=== PATIENT | female | born 1970 | race Caucasian/White ===

== ENCOUNTER 2017-07-15 18:13 | Emergency (ER) | payer SELFPAY ==
[~2017-07-15] VITALS: Ht 157.5 cm; Wt 127.3 kg
[~2017-07-15 18:13] MED LIST: 00186-0372-20 IH; AMOXICILLIN 8751 TAB PO; AUGMENTIN XR 101 TER PO; BYSTOLIC5 MG PO; LEVAQUIN 5500 MG/TA1 PO; LEXAPRO 10MG10 MG PO; MACROBID 1100 MG/CAP PO; NORCO 325 MG-51 TAB PO; PREDNISONE10 MG PO; PREDNISONE20 MG PO; PRIL40 PO; PRINIVIL20 MG PO; RT ALBUTER2.5 MG/0.5 IH; TOPAMAX 25MG25 M1 PO; TOPAMAX50 MG PO; TUSS PO; XOPENEX HF0.045 MG/A IH; XOPENEX0.63 MG/3 IH; ZITHROMAX Z PA250 MG PO; ZYRTEC ALLERGY10 MG PO
[2017-07-15 18:15] VITALS: TEMP 98.7
[2017-07-15] MEDS ORDERED: CYMBALTA 60MG60 MG PO (18:43)
[2017-07-15 19:01] LABS: BASO # 0.1 (0.0-0.2); BASO % 0.6 % (0.0-2.0); EOS # 0.4 (0.0-0.7); EOS % 2.8 % (0-4.0); GRAN # 10.2 (1.4-6.5); GRAN % 73.8 % (42.2-75.2); HEMATOCRIT 39.8 % (37.0-47.0); HEMOGLOBIN 12.8 g/dl (12.5-16.0); LYMPH # 2.6 (1.2-3.4); LYMPH % 18.6 % (20.0-51.0); MEAN CELL VOLUME 86 fl (80.0-100.0); MEAN CORPUSCULAR HEMOGLOBIN 28 pg (27.0-31.0); MEAN CORPUSCULAR HGB CONC 32 g/dl (33.0-37.0); MONO # 0.5 (0.1-0.6); MONO % 3.8 % (1.7-9.3); PLATELET COUNT 324 K/mm3 (130-400); RED BLOOD COUNT 4.64 M/mm3 (4.10-5.30); REDCELL DISTRIBUTION WIDTH-CV 14.6 % (11.5-14.5)
[2017-07-15 19:10] LABS: ALBUMIN 3.9 gm/dL (3.5-5.0); BILIRUBIN,TOTAL 0.4 mg/dL (0.0-1.0); CALCIUM 9.1 mg/dL (8.4-10.2); CREATININE, serum 0.74 mg/dL (0.52-1.25); TOTAL PROTEIN 7.5 gm/dL (6.4-8.2)
[2017-07-15 19:48] VITALS: PULSE 86
[2017-07-15 20:40] VITALS: BP 142/94
== END 2017-07-15 21:09 | disposition home or self-care (01) ==
LOC: COL.ER 18:13
PROVIDERS: Family Medicine
DX: I10 Essential (primary) hypertension (principal); R55 Syncope and collapse

== ENCOUNTER → 2017-07-30 | Outpatient (CLI) | payer SELFPAY ==
[~2017-07-30] MED LIST changes: +CYMBALTA 60MG60 MG PO
== END ==
LOC: COL.RAD 08:18
DX: R07.9 Chest pain, unspecified (principal); R00.0 Tachycardia, unspecified
CPT/HCPCS: A9539; A9540

== ENCOUNTER 2018-06-03 21:12 | Inpatient (IN) | payer SELFPAY ==
[~2018-06-03] VITALS: Ht 157.5 cm; Wt 129.8 kg
[~2018-06-03 21:12] MED LIST changes: +BYSTOLIC10 MG PO; -BYSTOLIC5 MG PO
[2018-06-03 21:40] LABS: BASO % 0.2 % (0.0-2.0); EOS # 0.2 (0.0-0.7); EOS % 1.5 % (0-4.0); GRAN # 10.9 (1.4-6.5); GRAN % 79.1 % (42.2-75.2); HEMATOCRIT 42.7 % (37.0-47.0); HEMOGLOBIN 14.3 g/dl (12.5-16.0); LYMPH # 2.1 (1.2-3.4); LYMPH % 15.5 % (20.0-51.0); MEAN CELL VOLUME 87 fl (80.0-100.0); MEAN CORPUSCULAR HEMOGLOBIN 29 pg (27.0-31.0); MEAN CORPUSCULAR HGB CONC 34 g/dl (33.0-37.0); MEAN PLATELET VOLUME 9.1 fl (7.4-10.4); MONO # 0.5 (0.1-0.6); MONO % 3.3 % (1.7-9.3); PLATELET COUNT 359 K/mm3 (130-400); RED BLOOD COUNT 4.93 M/mm3 (4.10-5.30); REDCELL DISTRIBUTION WIDTH-CV 13.7 % (11.5-14.5)
[2018-06-03 21:54] LABS: ALANINE AMINOTRANSFERASE 56 U/L (9-52); ALBUMIN 3.7 gm/dL (3.5-5.0); ALKALINE PHOSPHATASE 100 U/L (50-136); ANION GAP 6 mmol/L (7-16); AST,SGOT 54 U/L (15-37); BILIRUBIN,TOTAL 0.5 mg/dL (0.0-1.0); BLOOD UREA NITROGEN 15 mg/dL (7-17); C-REACTIVE PROTEIN 2.8 mg/dL (0.0-0.9); CALCIUM 9.3 mg/dL (8.4-10.2); CARBON DIOXIDE 27 mmol/L (22-30); CHLORIDE 102 mmol/L (98-107); CREATININE, serum 0.68 mg/dL (0.52-1.25); GLUCOSE 215 mg/dL (74-106); POTASSIUM 4.2 mmol/L (3.4-5.0); SODIUM 135 mmol/L (137-145); TOTAL PROTEIN 7.1 gm/dL (6.4-8.2)
[2018-06-03] MEDS ORDERED: LEVSIN 0.10.125 MG/T PO (22:02)
[2018-06-03] MEDS ORDERED: RT ADVAIR 128 DISKUS IH (22:03)
[2018-06-03] MEDS ORDERED: ADDERALL15 MG PO (22:04)
[2018-06-03 22:05] LABS: ARTERIAL BLD GAS O2 SATURATION 96.1 % (92-100); ARTERIAL BLD GAS TCO2 CT 22.2; ARTERIAL BLOOD GAS BASE EXCESS -0.2 (-2-2); ARTERIAL BLOOD GAS HCO3 21.4 meq/L (22-26); ARTERIAL BLOOD GAS PCO2 27.5 mmHg (35-45); ARTERIAL BLOOD GAS PO2 74.3 mmHg (80-100); ARTERIAL BLOOD GAS pH 7.51 (7.35-7.45)
[2018-06-03] MEDS ORDERED: PAMELOR 25MG25 MG PO (22:05)
[2018-06-03] MEDS ORDERED: ALLEGRA ALLERG180 MG PO (22:06)
[2018-06-03 22:12] LABS: TROPONIN-I < 0.012 ng/mL (0.000-0.034)
[2018-06-04] VITALS (1338 sets, daily range): BP systolic 116–134; BP diastolic 7–90; PULSE 76–92; TEMP 97.3–98.2; O2SAT 90–100
--- NOTE | 2018-06-04 00:52 | NUR ---
Pt admitted to ICU bed 2 from ED. Pt arrived via stretcher and placed on nurse monitoring. Vitals stable on arrival to unit. Pt denies pain or any other discomfort. Will continue to monitor. Shahnaz Schmitt APRN, present at bedside on admission to unit.
[2018-06-04] MEDS ORDERED: NAUZENE PO (01:09)
[2018-06-04] MEDS ORDERED: TYLENOL 500MG500 MG PO (01:13)
--- NOTE | 2018-06-04 02:30 | NUR ---
Admission assessment complete at this time. Plan of care reviewed at bedside with patient. Additional time taken to address any other needs or concerns. Vitals stable. Denies pain or any other discomfort. Will continue to monitor.
--- NOTE | 2018-06-04 04:00 | NUR ---
Pt resting comfortably in bed. Denies pain or any other discomfort. Vitals stable at this time. Will continue to monitor.
[2018-06-04 04:09] LABS: BASO # 0.1 (0.0-0.2); BASO % 0.2 % (0.0-2.0); EOS # 0.3 (0.0-0.7); EOS % 1.4 % (0-4.0); GRAN # 17.3 (1.4-6.5); GRAN % 85.8 % (42.2-75.2); HEMATOCRIT 40.5 % (37.0-47.0); HEMOGLOBIN 12.9 g/dl (12.5-16.0); LYMPH # 1.7 (1.2-3.4); LYMPH % 8.3 % (20.0-51.0); MEAN CELL VOLUME 90 fl (80.0-100.0); MEAN CORPUSCULAR HEMOGLOBIN 29 pg (27.0-31.0); MEAN CORPUSCULAR HGB CONC 32 g/dl (33.0-37.0); MONO # 0.8 (0.1-0.6); PLATELET COUNT 301 K/mm3 (130-400); RED BLOOD COUNT 4.48 M/mm3 (4.10-5.30)
[2018-06-04 04:19] LABS: ALANINE AMINOTRANSFERASE 53 U/L (9-52); ALBUMIN 3.4 gm/dL (3.5-5.0); ALKALINE PHOSPHATASE 85 U/L (50-136); ANION GAP 4 mmol/L (7-16); AST,SGOT 51 U/L (15-37); BILIRUBIN,TOTAL 0.4 mg/dL (0.0-1.0); BLOOD UREA NITROGEN 14 mg/dL (7-17); CALCIUM 8.3 mg/dL (8.4-10.2); CARBON DIOXIDE 31 mmol/L (22-30); CHLORIDE 102 mmol/L (98-107); CREATININE, serum 0.71 mg/dL (0.52-1.25); GLUCOSE 131 mg/dL (74-106); POTASSIUM 4.5 mmol/L (3.4-5.0); SODIUM 137 mmol/L (137-145); TOTAL PROTEIN 6.6 gm/dL (6.4-8.2)
[2018-06-04 04:32] LABS: TROPONIN-I < 0.012 ng/mL (0.000-0.034)
[2018-06-04 06:02] LABS: ARTERIAL BLD GAS O2 SATURATION 96.4 % (92-100); ARTERIAL BLD GAS TCO2 CT 27.3; ARTERIAL BLOOD GAS BASE EXCESS 2.2 (-2-2); ARTERIAL BLOOD GAS HCO3 26.2 meq/L (22-26); ARTERIAL BLOOD GAS PCO2 38.5 mmHg (35-45); ARTERIAL BLOOD GAS PO2 84.9 mmHg (80-100); ARTERIAL BLOOD GAS pH 7.45 (7.35-7.45)
--- NOTE | 2018-06-04 07:18 | NUR ---
Bedside report given to VIKTOR Lowe.
[2018-06-04 07:19] LABS: COLLECTION METHOD CLEAN CATCH
--- NOTE | 2018-06-04 07:23 | NUR ---
Report received from Shaheen HOANG and care resumed.
[2018-06-04 07:27] LABS: MUCOUS Present /lpf; PH 5 (5-8); SQUAMOUS EPITHELIAL 0-2 /hpf; URINE APPEARANCE Clear; URINE BACTERIA None Seen /hpf; URINE BILIRUBIN Negative (NEGATIVE); URINE BLOOD Negative (NEGATIVE); URINE COLOR Yellow; URINE GLUCOSE Negative (NEGATIVE); URINE KETONE Negative (NEGATIVE); URINE LEUKOCYTE ESTERASE Negative (NEGATIVE); URINE NITRATE Negative (NEGATIVE); URINE PROTEIN(semi-quant) Negative (NEGATIVE); URINE UROBILINOGEN Negative (NEGATIVE)
--- NOTE | 2018-06-04 11:17 | NUR ---
Dr Dinero in to see pt at this time.
--- NOTE | 2018-06-04 11:36 | NUR ---
pony worker attended clinical rounds and met with patient to discuss discharge planning. Patient lives with her father in [place] and will return upon discharge. Patient had medicaid and it has lapsed. Financial counselor will meet with patient to help reinstate. Patient works for [employer] and has been independent with her activities of daily living. Patient's primary care provider is Dr Stewart.
--- NOTE | 2018-06-04 19:10 | NUR ---
Report given to Shaheen HOANG and care transfered.
--- NOTE | 2018-06-04 20:00 | NUR ---
Shift assessment complete at this time. Plan of care reviewed at bedside with patient et family. Additional time taken to address any other needs or concerns. Vitals stable at this time. Denies pain or any other discomfort. Will continue to monitor.
[2018-06-05] VITALS (1033 sets, daily range): BP systolic 122–167; BP diastolic 72–91; PULSE 78–103; TEMP 97.4–98.3; O2SAT 85–99
--- NOTE | 2018-06-05 | NUR ---
Pt sleeping comfortably in bed. Denies pain or any other discomfort. Vitals stable at this time. Will continue to monitor.
--- NOTE | 2018-06-05 04:00 | NUR ---
Pt sleeping comfortably in bed. Denies pain or any other discomfort. Vitals stable at this time. Will continue to monitor.
[2018-06-05 05:52] LABS: BASO % 0.2 % (0.0-2.0); EOS # 0.5 (0.0-0.7); EOS % 4.1 % (0-4.0); GRAN # 8.9 (1.4-6.5); HEMATOCRIT 37.5 % (37.0-47.0); LYMPH # 2.3 (1.2-3.4); MEAN CELL VOLUME 90 fl (80.0-100.0); MEAN CORPUSCULAR HEMOGLOBIN 29 pg (27.0-31.0); MEAN CORPUSCULAR HGB CONC 32 g/dl (33.0-37.0); MEAN PLATELET VOLUME 8.6 fl (7.4-10.4); MONO # 0.5 (0.1-0.6); MONO % 4.4 % (1.7-9.3); PLATELET COUNT 249 K/mm3 (130-400); RED BLOOD COUNT 4.16 M/mm3 (4.10-5.30); REDCELL DISTRIBUTION WIDTH-CV 14.4 % (11.5-14.5)
[2018-06-05 06:01] LABS: CALCIUM 8.4 mg/dL (8.4-10.2); CREATININE, serum 0.76 mg/dL (0.52-1.25)
--- NOTE | 2018-06-05 07:09 | NUR ---
Bedside report given to VIKTOR Lowe
--- NOTE | 2018-06-05 07:20 | NUR ---
Report received from Shaheen HOANG and care resumed.
--- NOTE | 2018-06-05 08:27 | NUR ---
Pt resting upon assessment. Denies any pain. Does state "my chest feels a little tight" and requested a breathing treatment. RT called. AM meds given. Pt ordered breakfast. Remains medical status. No concerns at this time. Will continue to follow.
--- NOTE | 2018-06-05 10:24 | NUR ---
Initial visit; Patient thanked Miter Sawyer for offering prayer this morning and for keeping her in her prayers. Miter Sawyer will follow up.
--- NOTE | 2018-06-05 17:07 | NUR ---
Telephone report recieved from VIKTOR Lowe
--- NOTE | 2018-06-05 17:27 | NUR ---
Report called to Samuel and pt taken by wheelchair with chart and tele to room 358. Bedside update given to Samuel.
--- NOTE | 2018-06-05 17:44 | NUR ---
Pt arrived on wheelchair. Ambulated to bed without difficulty. Father at bedside. No concerns at this time. Call light within reach.
--- NOTE | 2018-06-06 02:00 | NUR ---
PT HAD IV ABX INFUSING. CALLED THIS NURSE STATED THAT THE STARTED BURING REALLY BAD AND WAS INTOLERABLE. THIS NURSE ASSESSED AREA. HAD SLIGHT REDNESS TO AREA. THIS NURSE HAD LUCHO RN ALSO LOOK AT AREA. THOUGHT TO WELL TO PULL IV AND START A NEW LINE. THIS NURSE AND RN LUCHO ATTEMPTED TO START IV. IV WAS SUCCESSFUL ON 3RD ATTEMPT BY WALLY TO LT FOREARM. IV ABX RESTARTED AND INFUSING WELL WITHOUT ISSUE. ICE WAS PLACED ON ARM THAT IV WAS REMOVED FROM TO HELP WITH THE PAIN
[2018-06-06 03:49] VITALS: BP 143/72; PULSE 70; TEMP 98.2
[2018-06-06 06:53] LABS: BASO % 0.3 % (0.0-2.0); EOS # 0.5 (0.0-0.7); EOS % 4.1 % (0-4.0); GRAN # 9.2 (1.4-6.5); GRAN % 72.1 % (42.2-75.2); HEMATOCRIT 37.3 % (37.0-47.0); HEMOGLOBIN 11.9 g/dl (12.5-16.0); LYMPH # 2.4 (1.2-3.4); LYMPH % 18.6 % (20.0-51.0); MEAN CELL VOLUME 90 fl (80.0-100.0); MEAN CORPUSCULAR HEMOGLOBIN 29 pg (27.0-31.0); MEAN CORPUSCULAR HGB CONC 32 g/dl (33.0-37.0); MEAN PLATELET VOLUME 9.1 fl (7.4-10.4); MONO # 0.6 (0.1-0.6); MONO % 4.4 % (1.7-9.3); PLATELET COUNT 274 K/mm3 (130-400); RED BLOOD COUNT 4.14 M/mm3 (4.10-5.30); REDCELL DISTRIBUTION WIDTH-CV 14.4 % (11.5-14.5)
[2018-06-06 07:07] LABS: CALCIUM 8.9 mg/dL (8.4-10.2); CREATININE, serum 0.75 mg/dL (0.52-1.25); POTASSIUM 3.9 mmol/L (3.4-5.0)
[2018-06-06 07:34] VITALS: BP 116/71; PULSE 80; TEMP 98.3
[2018-06-06 11:05] VITALS: BP 133/84; PULSE 77; TEMP 97.7
[2018-06-06 15:40] VITALS: BP 143/96; PULSE 81; TEMP 97.5
[2018-06-06 19:30] VITALS: BP 151/103; PULSE 85; TEMP 97.8
[2018-06-06 23:40] VITALS: BP 145/99; PULSE 97; TEMP 97.9
[2018-06-07 03:58] VITALS: BP 133/83; PULSE 77; TEMP 97.8
--- NOTE | 2018-06-07 04:51 | NUR ---
PT HAS BEEN PLEASENT AND COOPERATIVE WITH CARES. NO C/O PAIN NO NOTED N/V/D. RECIEVING IV ABX WITHOUT ISSUE, NO NOTED S/S OF ADVERSE REACTION. HAS BEEN UP IN CHAIR A COUPLE TIMES THIS NOC AND WALKED TO NUTRITION ROOM. REFUSED CPAP THIS NOC. REMAINS ON RA AND SATS WNL.
--- NOTE | 2018-06-07 07:47 | NUR ---
Pt is awake and A/Ox4 laying in bed. She denies pain or discomfort at this time. Saline lock to left FA is free of complications. Pt remains on room air, resp. are even and unlabored. Pt is up as tolerated in room, steady gait. Denies any further needs, will monitor.
[2018-06-07 08:51] VITALS: BP 129/92; PULSE 87; TEMP 97.8
[2018-06-07 09:02] LABS: BASO # 0.1 (0.0-0.2); BASO % 0.5 % (0.0-2.0); EOS # 0.9 (0.0-0.7); EOS % 7.1 % (0-4.0); GRAN # 8.5 (1.4-6.5); GRAN % 66.4 % (42.2-75.2); HEMATOCRIT 37.8 % (37.0-47.0); LYMPH # 2.8 (1.2-3.4); LYMPH % 21.8 % (20.0-51.0); MEAN CELL VOLUME 90 fl (80.0-100.0); MEAN CORPUSCULAR HEMOGLOBIN 29 pg (27.0-31.0); MEAN CORPUSCULAR HGB CONC 32 g/dl (33.0-37.0); MEAN PLATELET VOLUME 9.1 fl (7.4-10.4); MONO # 0.5 (0.1-0.6); MONO % 3.8 % (1.7-9.3); PLATELET COUNT 291 K/mm3 (130-400); RED BLOOD COUNT 4.21 M/mm3 (4.10-5.30); REDCELL DISTRIBUTION WIDTH-CV 14.4 % (11.5-14.5)
[2018-06-07 09:11] LABS: CALCIUM 9.1 mg/dL (8.4-10.2); CREATININE, serum 0.72 mg/dL (0.52-1.25); POTASSIUM 3.7 mmol/L (3.4-5.0)
[2018-06-07] MEDS ORDERED: AMOXICILLIN 8751 TAB PO (10:55)
--- NOTE | 2018-06-07 13:07 | NUR ---
Pt was discharged home from hospital. All discharge instructions and paperwork was reviewed with pt and father, both expressed understanding and had no questions. Saline lock removed, catheter tip intact. New prescription sent electronically to pharm. Home meds returned.
== END 2018-06-07 13:08 | disposition home or self-care (01) | DRG 177 ==
LOC: COL.ER 21:12 → ICU 23:36 → MEDICAL 06-05 17:28
PROVIDERS: Emergency Medicine; Nurse Practitioner Family; Physician Assistant
DX: J69.0 Pneumonitis due to inhalation of food and vomit (principal); J96.01 Acute respiratory failure with hypoxia; Z68.44 Body mass index [BMI] 60.0-69.9, adult; E87.3 Alkalosis; E87.2 Acidosis; R55 Syncope and collapse; E66.01 Morbid (severe) obesity due to excess calories; A08.4 Viral intestinal infection, unspecified; E86.0 Dehydration; E11.65 Type 2 diabetes mellitus with hyperglycemia; F98.8 Other specified behavioral and emotional disorders with onset usually occurring in childhood and adolescence; J45.20 Mild intermittent asthma, uncomplicated
CPT/HCPCS: 99223-AI; 99232-AI; 99233-AI; 99239; A4216; J0456; J0696; J1650; J1815; J2405; J2543; J2550; J7030; J7050; Q9967

== ENCOUNTER 2018-07-17 20:31 | Emergency (ER) | payer SELFPAY ==
[~2018-07-17] VITALS: Ht 160 cm; Wt 127.3 kg
[~2018-07-17 20:31] MED LIST changes: +ADDERALL15 MG PO; +ALLEGRA ALLERG180 MG PO; +LEVSIN 0.10.125 MG/T PO; +NAUZENE PO; +PAMELOR 25MG25 MG PO; +RT ADVAIR 128 DISKUS IH; +TYLENOL 500MG500 MG PO
[2018-07-17 20:34] VITALS: TEMP 97.1
[2018-07-17 21:44] LABS: BASO # 0.1 (0.0-0.2); BASO % 0.4 % (0.0-2.0); EOS # 0.2 (0.0-0.7); EOS % 1.4 % (0-4.0); GRAN # 13.9 (1.4-6.5); GRAN % 82.4 % (42.2-75.2); HEMATOCRIT 45.1 % (37.0-47.0); HEMOGLOBIN 14.4 g/dl (12.5-16.0); LYMPH # 1.9 (1.2-3.4); MEAN CELL VOLUME 91 fl (80.0-100.0); MEAN CORPUSCULAR HEMOGLOBIN 29 pg (27.0-31.0); MEAN CORPUSCULAR HGB CONC 32 g/dl (33.0-37.0); MEAN PLATELET VOLUME 9.1 fl (7.4-10.4); MONO # 0.7 (0.1-0.6); MONO % 4.4 % (1.7-9.3); PLATELET COUNT 421 K/mm3 (130-400); RED BLOOD COUNT 4.98 M/mm3 (4.10-5.30); REDCELL DISTRIBUTION WIDTH-CV 14.2 % (11.5-14.5)
[2018-07-17 22:04] LABS: ALANINE AMINOTRANSFERASE 70 U/L (9-52); ALBUMIN 4.1 gm/dL (3.5-5.0); ALKALINE PHOSPHATASE 121 U/L (50-136); ANION GAP 8 mmol/L (7-16); AST,SGOT 86 U/L (15-37); BILIRUBIN,TOTAL 0.4 mg/dL (0.0-1.0); BLOOD UREA NITROGEN 18 mg/dL (7-17); C-REACTIVE PROTEIN 2.2 mg/dL (0.0-0.9); CALCIUM 9.3 mg/dL (8.4-10.2); CARBON DIOXIDE 27 mmol/L (22-30); CHLORIDE 102 mmol/L (98-107); CREATININE, serum 0.78 mg/dL (0.52-1.25); GLUCOSE 207 mg/dL (74-106); LIPASE 51 U/L (23-300); POTASSIUM 4.8 mmol/L (3.4-5.0); SODIUM 137 mmol/L (137-145); TOTAL PROTEIN 7.9 gm/dL (6.4-8.2)
[2018-07-17 22:29] LABS: TROPONIN-I < 0.012 ng/mL (0.000-0.035)
[2018-07-17 23:06] LABS: COLLECTION METHOD CLEAN CATCH
[2018-07-17 23:16] LABS: AMORPHOUS CRYSTAL Present /uL; MUCOUS Present /lpf; PH 5 (5-8); SQUAMOUS EPITHELIAL 0-2 /hpf; URINE APPEARANCE Hazy; URINE BACTERIA None Seen /hpf; URINE BILIRUBIN Negative (NEGATIVE); URINE BLOOD Negative (NEGATIVE); URINE COLOR Yellow; URINE GLUCOSE 3+ (NEGATIVE); URINE KETONE Trace (NEGATIVE); URINE LEUKOCYTE ESTERASE Negative (NEGATIVE); URINE NITRATE Negative (NEGATIVE); URINE PROTEIN(semi-quant) Negative (NEGATIVE); URINE UROBILINOGEN Negative (NEGATIVE)
[2018-07-18 02:32] VITALS: BP 112/68; PULSE 65
[2018-07-18] MEDS ORDERED: ZOFRAN ODT8 MG PO (02:41)
== END 2018-07-18 02:46 | disposition home or self-care (01) ==
LOC: COL.ER 20:31
PROVIDERS: Emergency Medicine
DX: R10.84 Generalized abdominal pain (principal); R11.10 Vomiting, unspecified; R19.7 Diarrhea, unspecified; J45.909 Unspecified asthma, uncomplicated; E66.01 Morbid (severe) obesity due to excess calories; E11.9 Type 2 diabetes mellitus without complications; I10 Essential (primary) hypertension; R55 Syncope and collapse; Z90.710 Acquired absence of both cervix and uterus; Z79.84 Long term (current) use of oral hypoglycemic drugs
CPT/HCPCS: J2405; J2765; J7030; Q9967

== ENCOUNTER → 2018-09-04 | Outpatient (CLI) | payer SELFPAY ==
[~2018-09-04] MED LIST changes: +ZOFRAN ODT8 MG PO
== END ==
LOC: SUN.DIA 10:29
DX: E11.9 Type 2 diabetes mellitus without complications (principal); E78.5 Hyperlipidemia, unspecified; I10 Essential (primary) hypertension; E66.9 Obesity, unspecified
CPT/HCPCS: G0108

== ENCOUNTER → 2018-10-01 | Outpatient (CLI) | payer SELFPAY | LOC: SUN.DIA 09-16 13:46 | DX: E11.9 Type 2 diabetes mellitus without complications (principal); E78.5 Hyperlipidemia, unspecified; I10 Essential (primary) hypertension; E66.9 Obesity, unspecified | CPT/HCPCS: G0109 ==

== ENCOUNTER 2021-06-17 00:23 | Emergency (ER) | payer MEDICAID ==
[~2021-06-17] VITALS: Ht 157.5 cm; Wt 104.5 kg
[2021-06-17 01:13] LABS: BASO # 0.1 K/mm3 (0.0-0.2); BASO % 0.4 % (0.0-2.0); EOS # 0.2 K/mm3 (0.0-0.7); EOS % 1.3 % (0.0-4.0); GRAN # 9.9 K/mm3 (1.4-6.5); GRAN % 69.2 % (42.2-75.2); HEMATOCRIT 43.4 % (37.0-47.0); HEMOGLOBIN 14.8 g/dl (12.5-16.0); LYMPH # 3.6 K/mm3 (1.2-3.4); MEAN CELL VOLUME 85 fl (80.0-100.0); MEAN CORPUSCULAR HEMOGLOBIN 29 pg (27-31); MEAN CORPUSCULAR HGB CONC 34 g/dl (33.0-37.0); MEAN PLATELET VOLUME 9.8 fl (7.4-10.4); MONO # 0.6 K/mm3 (0.1-0.6); MONO % 3.8 % (1.7-9.3); PLATELET COUNT 308 K/mm3 (130-400); RED BLOOD COUNT 5.08 M/mm3 (4.10-5.30); REDCELL DISTRIBUTION WIDTH-CV 13.2 % (11.5-14.5)
[2021-06-17 01:30] LABS: ALBUMIN 3.3 gm/dL (3.5-5.0); BILIRUBIN,TOTAL 0.5 mg/dL (0.2-1.2); CALCIUM 8.9 mg/dL (8.4-10.2); CREATININE, serum 1.08 mg/dL (0.57-1.11); POTASSIUM 4.8 mmol/L (3.5-4.5); TOTAL PROTEIN 7.5 gm/dL (6.2-8.1)
[2021-06-17 01:30] LABS: COLLECTION METHOD CLEAN CATCH
[2021-06-17 01:39] LABS: MUCOUS Present (NOT PRESENT); PH 5 (5-8); URINE APPEARANCE Cloudy (CLEAR/HAZY); URINE BACTERIA Rare /hpf (NONE SEEN); URINE BILIRUBIN Negative (NEGATIVE); URINE BLOOD 2+ (NEGATIVE); URINE COLOR Yellow (YELLOW); URINE GLUCOSE 3+ (NEGATIVE); URINE KETONE Negative (NEGATIVE); URINE LEUKOCYTE ESTERASE 1+ (NEGATIVE); URINE NITRATE Negative (NEGATIVE); URINE PROTEIN(semi-quant) Negative (NEGATIVE); URINE UROBILINOGEN Negative (NEGATIVE)
[2021-06-17] MEDS ORDERED: ZOFRAN ODT4 MG PO (06:10)
[2021-06-17] MEDS ORDERED: AMOXICILLIN 8751 TAB PO (06:10)
[2021-06-17] MEDS ORDERED: EPIPEN 2-PAK1 MG/ML IM (06:10)
[2021-06-17 06:18] VITALS: BP 125/100; PULSE 98
== END 2021-06-17 06:24 | disposition home or self-care (01) ==
LOC: COL.ER 00:23
PROVIDERS: Emergency Medicine
DX: K52.9 Noninfective gastroenteritis and colitis, unspecified (principal); R21 Rash and other nonspecific skin eruption; D72.829 Elevated white blood cell count, unspecified; I10 Essential (primary) hypertension; E11.9 Type 2 diabetes mellitus without complications; K21.9 Gastro-esophageal reflux disease without esophagitis; Z20.822 Contact with and (suspected) exposure to COVID-19; Z79.899 Other long term (current) drug therapy
CPT/HCPCS: J1100; J1200; J2405; J2765; J7030; Q9967

== ENCOUNTER 2021-06-18 01:07 | Emergency (ER) | payer MEDICAID ==
[~2021-06-18] VITALS: Ht 157.5 cm; Wt 104.5 kg
[~2021-06-18 01:07] MED LIST changes: +EPIPEN 2-PAK1 MG/ML IM; +ZOFRAN ODT4 MG PO
[2021-06-18 01:28] VITALS: TEMP 97.4
[2021-06-18 03:22] VITALS: BP 115/62; PULSE 95
== END 2021-06-18 03:22 | disposition home or self-care (01) ==
LOC: COL.ER 01:07
DX: L50.9 Urticaria, unspecified (principal); I10 Essential (primary) hypertension; E11.9 Type 2 diabetes mellitus without complications; K21.9 Gastro-esophageal reflux disease without esophagitis; Z79.899 Other long term (current) drug therapy
CPT/HCPCS: J0171; J2765; J7030

== ENCOUNTER → 2022-01-02 | Outpatient (CLI) | payer MEDICAID | LOC: COL.RAD 08:00 | DX: R10.13 Epigastric pain (principal) | CPT/HCPCS: A9541 ==

== ENCOUNTER 2022-01-25 14:13 | Emergency (ER) | payer MEDICAID ==
[~2022-01-25] VITALS: Ht 157.5 cm; Wt 109.1 kg
[2022-01-25] MEDS ORDERED: CRESTOR20 MG PO (14:27)
[2022-01-25] MEDS ORDERED: INSULIN GL100 UNIT/2 SQ (14:27)
[2022-01-25] MEDS ORDERED: NOVOLOG FLEX100 U/ML (14:28)
[2022-01-25] MEDS ORDERED: PRINZIDE 25 MG-1 TAB PO (14:29)
[2022-01-25] MEDS ORDERED: ABILIFY5 MG PO (14:30)
[2022-01-25 14:46] LABS: COLLECTION METHOD CLEAN CATCH
[2022-01-25 14:53] LABS: MUCOUS Present (NOT PRESENT); URINE APPEARANCE Clear (CLEAR/HAZY); URINE BACTERIA None Seen /hpf (NONE SEEN); URINE COLOR Yellow (YELLOW); URINE GLUCOSE 2+ (NEGATIVE); URINE PROTEIN(semi-quant) Negative (NEGATIVE); URINE RBC 0-2 /hpf (0-2)
[2022-01-25 14:54] LABS: URINE BLOOD TRACE-INTACT (NEGATIVE); URINE KETONE Negative (NEGATIVE); URINE NITRATE Negative (NEGATIVE); URINE UROBILINOGEN 0.2 E.U/dL (0.2-1.0)
[2022-01-25 14:58] LABS: BASO # 0.1 K/mm3 (0.0-0.2); BASO % 0.6 % (0.0-2.0); EOS # 0.1 K/mm3 (0.0-0.7); GRAN # 7.6 K/mm3 (1.4-6.5); GRAN % 70.2 % (42.2-75.2); HEMOGLOBIN 15.6 g/dl (12.5-16.0); LYMPH # 2.6 K/mm3 (1.2-3.4); LYMPH % 23.7 % (20.0-51.0); MEAN CELL VOLUME 87 fl (80.0-100.0); MEAN CORPUSCULAR HEMOGLOBIN 29 pg (27-31); MEAN CORPUSCULAR HGB CONC 33 g/dl (33.0-37.0); MEAN PLATELET VOLUME 9.6 fl (7.4-10.4); MONO # 0.5 K/mm3 (0.1-0.6); MONO % 4.2 % (1.7-9.3); PLATELET COUNT 284 K/mm3 (130-400); RED BLOOD COUNT 5.39 M/mm3 (4.10-5.30); REDCELL DISTRIBUTION WIDTH-CV 12.9 % (11.5-14.5)
[2022-01-25 15:02] LABS: TRICYCLIC ANTIDEPRESS URINE NEGATIVE
[2022-01-25 15:18] LABS: ALANINE AMINOTRANSFERASE 89 U/L (0-55); ALBUMIN 3.6 gm/dL (3.5-5.0); ALKALINE PHOSPHATASE 137 U/L (40-150); ANION GAP 12 mmol/L (7-16); AST,SGOT 64 U/L (5-34); BILIRUBIN,TOTAL 0.6 mg/dL (0.2-1.2); BLOOD UREA NITROGEN 13 mg/dL (10-20); CALCIUM 9.7 mg/dL (8.4-10.2); CARBON DIOXIDE 28 mmol/L (22-29); CHLORIDE 92 mmol/L (98-107); CREATININE, serum 0.96 mg/dL (0.57-1.11); SODIUM 132 mmol/L (136-145); TOTAL PROTEIN 7.7 gm/dL (6.2-8.1)
[2022-01-25 15:21] LABS: ACETAMINOPHEN < 1.0 ug/mL (10-30); ALCOHOL(ethanol),MEDICAL < 10 mg/dL (0-10); GLUCOSE 449 mg/dL (70-99); SALICYLATE < 5.0 mg/dL (15.0-30.0)
[2022-01-25 20:35] VITALS: BP 106/73; PULSE 72; TEMP 98.4
== END 2022-01-25 20:35 | disposition home or self-care (01) ==
LOC: COL.ER 14:13
PROVIDERS: Nurse Practitioner
DX: F32.A Depression, unspecified (principal); Z20.822 Contact with and (suspected) exposure to COVID-19
CPT/HCPCS: J1815; J7030

== ENCOUNTER 2023-03-08 22:36 | Emergency (ER) | payer OTHER ==
[~2023-03-08] VITALS: Ht 157.5 cm; Wt 104.5 kg
[~2023-03-08 22:36] MED LIST changes: +ABILIFY5 MG PO; +BENTYL 20MG20 MG/TAB PO; +CRESTOR20 MG PO; +CYMBALTA 30MG30 MG PO; +INSULIN GL100 UNIT/2 SQ; +NEURONTIN300 MG/CAP; +NOVOLOG FLEX100 U/ML; +OMNICEF 300MG300 MG PO; +PEPCID 20MG TAB20 MG PO; +PRINZIDE 25 MG-1 TAB PO; +PROTONIX 40MG T40 MG PO; +TOPROL XL 25MG25 MG PO
[2023-03-08 22:42] VITALS: TEMP 98.3
[2023-03-08 23:16] LABS: BASO % 0.1 % (0.0-2.0); EOS # 0.1 K/mm3 (0.0-0.7); EOS % 0.8 % (0.0-4.0); GRAN # 10.1 K/mm3 (1.4-6.5); HEMATOCRIT 44.3 % (37.0-47.0); HEMOGLOBIN 14.8 g/dl (12.5-16.0); LYMPH # 3.6 K/mm3 (1.2-3.4); LYMPH % 24.6 % (20.0-51.0); MEAN CELL VOLUME 88 fl (80.0-100.0); MEAN CORPUSCULAR HEMOGLOBIN 29 pg (27-31); MEAN CORPUSCULAR HGB CONC 33 g/dl (33.0-37.0); MEAN PLATELET VOLUME 9.7 fl (7.4-10.4); MONO # 0.8 K/mm3 (0.1-0.6); MONO % 5.2 % (1.7-9.3); PLATELET COUNT 343 K/mm3 (130-400); RED BLOOD COUNT 5.04 M/mm3 (4.10-5.30); REDCELL DISTRIBUTION WIDTH-CV 13.5 % (11.5-14.5)
[2023-03-08 23:50] LABS: ALBUMIN 3.1 gm/dL (3.5-5.0); BILIRUBIN,TOTAL 0.5 mg/dL (0.2-1.2); CALCIUM 8.7 mg/dL (8.4-10.2); CREATININE, serum 0.8 mg/dL (0.57-1.11); POTASSIUM 3.9 mmol/L (3.5-4.5); TOTAL PROTEIN 6.8 gm/dL (6.2-8.1)
[2023-03-09] MEDS ORDERED: ZOFRAN ODT4 MG PO (00:13)
[2023-03-09 01:40] VITALS: BP 142/78; PULSE 76
== END 2023-03-09 01:40 | disposition home or self-care (01) ==
LOC: COL.ER 22:36
PROVIDERS: Nurse Practitioner Primary Care
DX: K52.9 Noninfective gastroenteritis and colitis, unspecified (principal); E11.9 Type 2 diabetes mellitus without complications; Z20.822 Contact with and (suspected) exposure to COVID-19; Z28.310 Unvaccinated for COVID-19
CPT/HCPCS: J2405; J2550; J7030; Q9967

== ENCOUNTER 2023-03-12 02:35 | Observation (INO) | payer SELFPAY ==
[~2023-03-12] VITALS: Ht 157.5 cm; Wt 112.0 kg
[2023-03-12 03:43] LABS: BASO % 0.2 % (0.0-2.0); EOS # 0.1 K/mm3 (0.0-0.7); EOS % 0.5 % (0.0-4.0); GRAN % 67.3 % (42.2-75.2); HEMATOCRIT 47.4 % (37.0-47.0); LYMPH # 3.8 K/mm3 (1.2-3.4); LYMPH % 25.7 % (20.0-51.0); MEAN CELL VOLUME 88 fl (80.0-100.0); MEAN CORPUSCULAR HEMOGLOBIN 30 pg (27-31); MEAN CORPUSCULAR HGB CONC 34 g/dl (33.0-37.0); MONO # 0.9 K/mm3 (0.1-0.6); MONO % 5.8 % (1.7-9.3); PLATELET COUNT 379 K/mm3 (130-400); RED BLOOD COUNT 5.39 M/mm3 (4.10-5.30); REDCELL DISTRIBUTION WIDTH-CV 13.9 % (11.5-14.5)
[2023-03-12 03:54] LABS: ALBUMIN 3.4 gm/dL (3.5-5.0); BILIRUBIN,TOTAL 0.6 mg/dL (0.2-1.2); CALCIUM 9.2 mg/dL (8.4-10.2); CREATININE, serum 0.91 mg/dL (0.57-1.11); POTASSIUM 3.6 mmol/L (3.5-4.5); TOTAL PROTEIN 7.3 gm/dL (6.2-8.1)
[2023-03-12 04:42] LABS: CLOSTRIDIUM DIFF A/B NEG
[2023-03-12] MEDS ORDERED: PRISTIQ 50 MG T50 MG PO (05:39)
[2023-03-12 08:05] VITALS: BP 102/71; PULSE 93; TEMP 97.9
[2023-03-12 11:21] VITALS: BP 109/69; PULSE 89; TEMP 98.1
--- NOTE | 2023-03-12 12:29 | NUR ---
orchid worker met with patient to discuss discharge planning. Patient confirmed she lives with her mother and sister in [place]. Patient's mom, Promise, is her best point of contact P# [phone] but her sister, Madina, is secondary [phone]. Patient reports his primary care physician is Dr. Doe and preferred pharmacy is [facility]. Patient reports she has had difficulty with affording her medications since she is not currently working. Patient reports she has applied for Medicaid but they were missing information and provided an extension for her. Patient reports she currently has [employer] insurance but when she was admitted they expressed they were having issues with it going through. Patient reports she does not have any DME at home and is independent with ADLS. Patient expressed she did not currently have a DPOA-HC but was interested in completing one. orchid worker assisted patient with completing the form. Patient appointed her mother as primary DPOA and did not list a secondary. orchid worker and patient's nurse witnessed patient's signature. Patient made several copies of DPOA-HC, placed copy of DPOA-HC in patient's file and provided the original and 4 copies to the patient. Patient reports she has steps going into her house and a staircase down to the basement. Patient denied any issues with transportation. Patient would like to return home at time of discharge. orchid worker left a message for Kelli Mcclain, financial counselor, regarding patient's insurance. Discharge Plan: Home
--- NOTE | 2023-03-12 14:10 | NUR ---
Initial visit: Magnetic Healer stopped by room on rounds. Pt was resting and content. Pt has no needs right now. Magnetic Healer will follow up as needed.
[2023-03-12 15:42] LABS: COLLECTION METHOD CLEAN CATCH
[2023-03-12 15:48] VITALS: BP 106/73; PULSE 92; TEMP 98
[2023-03-12 16:25] LABS: PH 5.5 (5.0-8.5); URINE APPEARANCE Hazy (CLEAR/HAZY); URINE BLOOD TRACE-INTACT (NEGATIVE); URINE COLOR Yellow (YELLOW); URINE GLUCOSE Negative (NEGATIVE); URINE KETONE Negative (NEGATIVE); URINE NITRATE Negative (NEGATIVE); URINE PROTEIN(semi-quant) Negative (NEGATIVE); URINE UROBILINOGEN 0.2 E.U/dL (0.2-1.0)
[2023-03-12 16:26] LABS: MUCOUS Present (NOT PRESENT); URINE BACTERIA Moderate /hpf (NONE SEEN); URINE RBC 0-2 /hpf (0-2)
--- NOTE | 2023-03-12 16:28 | NUR ---
Pt admitted to room 315 with dx of n/v/d and dehydration at approximately 0800 this morning. Pt medicated with Zofran and Phenergan for c/o nausea and Morphine for c/o pain, reporting relief. Currently rating pain 6/10 to abdomen. Pt has been sleeping most of the day with room darkened. Arouses easily. 1L bolus of NS administered. Pt only up to once since arrival to floor, voiding 600ml. UA collected- urine dark and tea colored.
[2023-03-12 19:44] VITALS: BP 120/76; PULSE 94; TEMP 97.9
[2023-03-12 19:48] VITALS: BP_SYST 120
--- NOTE | 2023-03-12 19:49 | NUR ---
Initial shift assessment done- states having some nausea and states abd pain 12/10,, will give Morphine/Zofran at this time-- taking sips of clear liquids, o2 at 1L/nc, IV fluids of NS at 100c/hr, SCD,s , Tele on, Will call when she needs to get up- on fall risk due to weakness.
[2023-03-12 23:14] VITALS: BP 121/73; PULSE 96; TEMP 98.2
[2023-03-13 00:15] VITALS: BP_SYST 121
[2023-03-13 03:39] VITALS: BP 104/76; PULSE 95; TEMP 97.4
[2023-03-13 05:13] LABS: BASO % 0.1 % (0.0-2.0); EOS # 0.2 K/mm3 (0.0-0.7); GRAN # 5.8 K/mm3 (1.4-6.5); GRAN % 61.2 % (42.2-75.2); HEMATOCRIT 37.2 % (37.0-47.0); LYMPH % 31.7 % (20.0-51.0); MEAN CELL VOLUME 88 fl (80.0-100.0); MEAN CORPUSCULAR HGB CONC 34 g/dl (33.0-37.0); MEAN PLATELET VOLUME 9.1 fl (7.4-10.4); MONO # 0.4 K/mm3 (0.1-0.6); MONO % 4.6 % (1.7-9.3); RED BLOOD COUNT 4.22 M/mm3 (4.10-5.30); REDCELL DISTRIBUTION WIDTH-CV 13.9 % (11.5-14.5)
[2023-03-13 05:17] VITALS: BP_SYST 104
[2023-03-13 05:22] LABS: HEMOGLOBIN 12.5 g/dl (12.5-16.0); MEAN CORPUSCULAR HEMOGLOBIN 30 pg (27-31); PLATELET COUNT 240 K/mm3 (130-400)
[2023-03-13 05:38] LABS: CREATININE, serum 0.72 mg/dL (0.57-1.11); POTASSIUM 3.3 mmol/L (3.5-4.5)
--- NOTE | 2023-03-13 05:58 | NUR ---
Up to bathroom and voided 100cc dark rosita urine- IV fluids continue at 100cc/hr, was medicated with the Morphine and Zofran just at start of shift - has not require more-- denies pain/nausea-- eating jello now
[2023-03-13 08:11] VITALS: BP 116/81; PULSE 96; TEMP 97.5
[2023-03-13 09:00] VITALS: BP_SYST 116
[2023-03-13] MEDS ORDERED: ZOFRAN ODT4 MG PO (09:02)
--- NOTE | 2023-03-13 10:32 | NUR ---
Initial visit; Patient thanked Human Services Supervisor for coming in to check on her and wish her well and offer God's blessings. Human Services Supervisor will keep Stan in her prayers.
[2023-03-13 11:27] VITALS: BP 112/70; PULSE 97; TEMP 97.4
--- NOTE | 2023-03-13 13:00 | NUR ---
Assessment completed this am. Discharge orders rec'd. Pt had two loose stools after a regular breakfast. ADRIANA Schuster notified- october still discharge today but take imodium. Tele d/c'd. IV d/c'd. Discharge instructions reviewed and patient verbalizes understanding. Pt escorted via w/c to private vehicle and discharged home.
== END 2023-03-13 13:00 | disposition home or self-care (01) ==
LOC: COL.ER 02:35 → MEDICAL 05:20
PROVIDERS: Nurse Practitioner Family; Personal Emergency Response Attendant; Physician Assistant; ADMIT Internal Medicine
DX: R10.9 Unspecified abdominal pain (principal); R11.2 Nausea with vomiting, unspecified; E86.0 Dehydration; E87.6 Hypokalemia; E11.65 Type 2 diabetes mellitus with hyperglycemia; J45.909 Unspecified asthma, uncomplicated; G47.33 Obstructive sleep apnea (adult) (pediatric); E66.01 Morbid (severe) obesity due to excess calories; K21.9 Gastro-esophageal reflux disease without esophagitis; K44.9 Diaphragmatic hernia without obstruction or gangrene; I10 Essential (primary) hypertension; E78.5 Hyperlipidemia, unspecified; R65.10 Systemic inflammatory response syndrome (SIRS) of non-infectious origin without acute organ dysfunction; D72.829 Elevated white blood cell count, unspecified; F32.A Depression, unspecified; Z79.4 Long term (current) use of insulin; Z79.891 Long term (current) use of opiate analgesic; Z79.899 Other long term (current) drug therapy
CPT/HCPCS: G0378; J1815; J2270; J2405; J2550; J7030